=== PATIENT | male | born 1995 | race African-American/Black ===

== ENCOUNTER 2019-10-09 18:48 | Emergency (ER) | payer OTHER ==
[2019-10-09 19:05] VITALS: BP 134/61
== END 2019-10-09 19:17 | disposition home or self-care (01) ==
LOC: M ED 18:48
DX: Z11.59 Encounter for screening for other viral diseases (principal); Z20.828 Contact with and (suspected) exposure to other viral communicable diseases
CPT/HCPCS: 99283; U0003

== ENCOUNTER 2020-06-22 01:00 | Emergency (ER) | payer OTHER ==
[~2020-06-22] VITALS: Ht 175.3 cm; Wt 123.0 kg
[2020-06-22 01:01] VITALS: BP 140/80
[2020-06-22] MEDS ORDERED: HYDR-3715 PO (01:54)
[2020-06-22] MEDS ORDERED: NORCO 5/325MG TABLET (BULK FOR ED) PO ONE (01:55)
== END 2020-06-22 02:10 | disposition home or self-care (01) ==
LOC: M ED 01:00
DX: K64.5 Perianal venous thrombosis (principal)

== ENCOUNTER 2020-10-06 12:14 | Emergency (ER) | payer OTHER ==
[~2020-10-06] VITALS: Ht 175.3 cm; Wt 124.3 kg
[~2020-10-06 12:14] MED LIST: HYDR-3715 PO
[2020-10-06] MEDS ORDERED: DEBR6.5S4 OTIC (13:33)
[2020-10-06 13:51] VITALS: BP 158/92
== END 2020-10-06 13:53 | disposition home or self-care (01) ==
LOC: M ED 12:14
DX: H61.21 Impacted cerumen, right ear (principal)

== ENCOUNTER 2020-12-20 08:23 | Emergency (ER) | payer OTHER ==
[~2020-12-20] VITALS: Ht 177.8 cm; Wt 115.5 kg
[~2020-12-20 08:23] MED LIST changes: +DEBR6.5S4 OTIC
[2020-12-20 08:42] VITALS: BP 147/81
--- NOTE | 2020-12-20 09:32 | REP ---
INDICATION: fell COMPARISON: None. TECHNIQUE: AP, lateral, bilateral oblique views left hand. FINDINGS: The osseous structures and joint spaces are intact and normal. There is no evidence for acute fracture or dislocation. Surrounding soft tissues are unremarkable. No subcutaneous emphysema or radiodense foreign body. IMPRESSION: . No acute fracture or dislocation. <Electronically signed by Pasquale Figueroa > 12/20/20 [id number]
[2020-12-20] MEDS ORDERED: NAPR-837 PO (09:43)
== END 2020-12-20 10:13 | disposition home or self-care (01) ==
LOC: M ED 08:23
DX: S63.602A Unspecified sprain of left thumb, initial encounter (principal); W01.0XXA Fall on same level from slipping, tripping and stumbling without subsequent striking against object, initial encounter; Y92.9 Unspecified place or not applicable; Y93.9 Activity, unspecified; Y99.9 Unspecified external cause status